=== PATIENT | female | born 1975 | race Hispanic/Latino ===

== ENCOUNTER 2018-10-30 12:21 | Emergency (ER) | payer SELFPAY | END 2018-10-30 13:51 | disposition home or self-care (01) | LOC: EDH 12:21 | DX: J10.1 Influenza due to other identified influenza virus with other respiratory manifestations (principal); R50.81 Fever presenting with conditions classified elsewhere; Z90.49 Acquired absence of other specified parts of digestive tract | CPT/HCPCS: 87804; 87880 ==

== ENCOUNTER 2019-09-20 16:34 | Emergency (ER) | payer SELFPAY ==
[2019-09-20 17:31] LABS: RAPID GROUP A STREP NEGATIVE (NEGATIVE)
== END 2019-09-20 19:19 | disposition home or self-care (01) ==
LOC: EDH 16:34
DX: J06.9 Acute upper respiratory infection, unspecified (principal); Z90.49 Acquired absence of other specified parts of digestive tract; Z98.890 Other specified postprocedural states
CPT/HCPCS: 87804; 87880

== ENCOUNTER 2020-02-26 11:13 | Emergency (ER) | payer OTHER, SELFPAY ==
[2020-02-26] MEDS ORDERED: ACETAMINOPHEN EXTRA STRENGTH 500 MG TABLET ONE (11:40)
[2020-02-26] MEDS ORDERED: ALBUTEROL INHALER 90MCG/INH IH ONE (11:41)
== END 2020-02-26 13:48 | disposition home or self-care (01) ==
LOC: EDH 11:13
DX: U07.1 COVID-19 (principal); R50.9 Fever, unspecified; R05 Cough; R09.81 Nasal congestion; Z90.49 Acquired absence of other specified parts of digestive tract; Z98.890 Other specified postprocedural states
CPT/HCPCS: 36415; 71045; 81025; 87804 ×2; 87880; 99284; U0003

== ENCOUNTER 2025-05-21 09:26 | Emergency (ER) | payer BC, OTHER ==
[~2025-05-21] VITALS: Ht 154.9 cm; Wt 63.5 kg
--- NOTE | 2025-05-21 09:49 | ERN ---
General Chief Complaint: Low Back Pain/Injury Stated Complaint: LOW BACK PAIN Time Seen by MD: 09:36 Source: patient History of Present Illness Initial Comments Patient is a 49-year-old female coming in complaining of right flank pain. Patient states that this has been ongoing for two days. Long with this she states that he has suprapubic tenderness and dysuria. Allergies: Coded Allergies: No Known Drug Allergies (Unverified Allergy, Unknown, 05/21/25) Past Medical History Past Medical History: No Pertinent History Past Surgical History: Appendectomy ROS Dictation CONSTITUTIONAL: No chills, no fever, no weakness, no diaphoresis, no malaise. HEAD/FACE: No signs of trauma. EENT: No eye pain, no blurred vision, no tearing, no double vision, no ear pain, no ear discharge, no nose pain, no nasal congestion, no throat pain, no throat swelling, no mouth pain. RESPIRATORY: No cough, no orthopnea, no SOB, no stridor, no wheezing. CARDIOVASCULAR: No chest pain, no edema, no palpitations, no syncope. GASTROINTESTINAL/ABDOMINAL: abdominal pain, no constipation, no diarrhea, no nausea, no vomiting. GENITOURINARY: No abnormal discharge, dysuria, no frequent urination, no hematuria. No complaints of pain in the genitals. MUSCULOSKELETAL: No back pain, no gout, no joint pain, no joint swelling, no muscle pain, no muscle stiffness, no neck pain. INTEGUMENTARY: No change in color, no change in hair/nails, no dryness, no lesion, no lumps, no rash. NEUROLOGICAL/PSYCH: No anxiety, not depressed, no emotional problem, no heada katelynn, no numbness, no pre-existing deficit, no history of seizures, no tremors, no weakness. HEMATOLOGIC/LYMPHATIC: Not anemic, no history of blood clots, no apparent bleeding, no bruising, glands not swollen. All Systems Negative, Except as Noted. Physical Exam Physical Exam Dictation VITAL SIGNS: Reviewed. GENERAL APPEARANCE: Alert, oriented x3, no acute distress, obese. HEAD AND FACE: Non-traumatic. EYES: PERRL, pink conjunctivas, eyelid no trauma, anterior chamber clear. EARS: Pinnas intact and no signs of trauma or erythema. Ear canals clear and no discharge. TMs no erythema. NOSE: No discharge, no bleeding. OROPHARYNX: Mouth normal, teeth no caries, tongue pink. Pharynx clear, no erythema. Tonsils no exudates, no abscesses noted. Mucous membrane moist. NECK: Supple, non-tender, no thyromegaly, no masses, no JVD, no bruits. BREAST: Deferred. CHEST: No tenderness, no crepitus, no paradoxical movement, no retractions. LUNGS: Clear, well-ventilated, symmetric, no rales, no wheezing, no rhonchi, no stridor, good breath sounds bilaterally. HEART: Regular rate, regular rhythm, no murmur, no gallops. VASCULAR: No peripheral edema. ABDOMEN: Soft, positive bowel sounds, nondistended, no guarding, right CVA angle tone, no rebound, no masses no hepatomegaly, no splenomegaly, no Vang's sign, no hernias. RECTAL: Deferred. GENITAL: Deferred. NEUROLOGICAL: Normal speech, gross motor function intact, gross sensory function intact. MUSCULOSKELETAL: Neck nontender, full range of motion, back nontender, full range of motion. EXTREMITIES: Nontender, full range of motion. SKIN: Color pink, dry, no turgor, no rash, no lacerations, no abrasions, no contusions. LYMPHATICS: Deferred. Results Laboratory and Microbiology Lab and Micro Result Laboratory Tests Test 05/21/25 09:37 05/21/25 09:50 05/21/25 10:58 05/21/25 11:31 Urine Color LIGHT-YELLOW (YELLOW) Urine Appearance CLOUDY (CLEAR) H Urine pH 5.5 (5.0-8.0) Urine Specific [place] 1.032 (1.001-1.031) Urine Protein 20 mg/dL (NEGATIVE) H Urine Glucose (UA) >=1000 mg/dL (NEGATIVE) H Urine Ketones 20 mg/dL (NEGATIVE) H Urine Occult Blood LARGE (NEGATIVE) H Urine Nitrate NEGATIVE (NEGATIVE) Urine Bilirubin NEGATIVE mg/dL (NEGATIVE) Urine Urobilinogen 0.2 mg/dL (0.2-1.0) Urine Leukocyte Esterase 500 Isabel/uL (NEGATIVE) H Urine RBC 51-100 /HPF (0-1) H Urine WBC TNTC /HPF (0-1) H Urine WBC Clumps (Auto) FEW /HPF (0-1) Urine Squamous Epithelial Cells RARE /HPF (0-2) Urine Bacteria None /HPF (None Seen) Urine HCG, Qualitative NEGATIVE (NEGATIVE) White Blood Count 12.8 K/uL (4.8-10.8) H Red Blood Count 4.68 MIL/uL (4.00-5.50) Hemoglobin 15.2 g/dL (12.0-16.0) Hematocrit 43.3 % (36-48) Mean Corpuscular Volume 92.5 fL (79-99) Mean Corpuscular Hemoglobin 32.5 pg (27.0-33.0) Mean Corpuscular Hemoglobin Concent 35.1 g/dL (32.0-36.0) Red Cell Distribution Width 12.2 % (11.0-15.5) Platelet Count 202 K/uL (130-400) Mean Platelet Volume 11.2 fL (7.5-10.5) H Immature Granulocyte % (Auto) 0.9 % (0-1) Neutrophils (%) (Auto) 74.1 % (40.0-77.0) Lymphocytes (%) (Auto) 16.8 % (21.0-51.0) L Monocytes (%) (Auto) 6.4 % (3.0-13.0) Eosinophils (%) (Auto) 1.3 % (0.0-8.0) Basophils (%) (Auto) 0.5 % (0.0-5.0) Neutrophils # (Auto) 9.5 K/uL (1.8-7.7) H Lymphocytes # (Auto) 2.2 K/uL (1.0-4.8) Monocytes # (Auto) 0.8 K/uL (0.1-1.0) Eosinophils # (Auto) 0.17 K/uL (0.00-0.70) Basophils # (Auto) 0.06 K/uL (0.00-0.20) Absolute Immature Granulocyte (auto 0.11 K/uL (0-1) Nucleated Red Blood Cells 0.0 % (0.0-0.19) Sodium Level 131 mmol/L (136-145) L Potassium Level 4.5 mmol/L (3.5-5.1) Chloride Level 96 mmol/L (101-111) L Carbon Dioxide Level 29 mmol/L (21-32) Blood Urea Nitrogen 12 mg/dL (7-18) Creatinine 0.7 mg/dL (0.5-1.0) Glomerular Filtration Rate Calc 107 mL/min (>90) Random Glucose 463 mg/dL (70-105) *H Total Calcium 9.6 mg/dL (8.5-10.1) Blood Gas Specimen Type Arterial Arterial Blood pH 7.459 (7.350-7.450) Arterial Blood Partial Pressure CO2 34 mmHg (32-45) Arterial Blood Partial Pressure O2 93.2 mmHg (83.0-108.0) Arterial Blood HCO3 23.3 mmol/L (21.0-28.0) Arterial Blood Oxygen Saturation 97.5 % (94.0-98.0) Arterial Blood Base Excess 0.2 mmol/L (-2.0-3.0) Hemoglobin (Blood Gas) 14.8 g/dL (12.0-16.0) Sodium (Blood Gas) 135 MMOL/L (136-145) L Bedside Potassium (Blood Gas) 3.7 MMOL/L (3.4-4.5) Bedside Chloride (Blood Gas) 99 MMOL/L (98-107) Bedside Glucose (Blood Gas) 426 MG/DL (65-95) *H Bedside Ionized Calcium (Blood Gas) 1.18 MMOL/L (1.15-1.33) Bedside Lactic Acid (Blood Gas) 1.79 MMOL/L (0.36-0.75) H Blood Gas Temperature 37.0 CELSIUS (35.5-37.0) Blood Gas Vent Mode 2LNC (ROOM AIR) FiO2 21.0 % Blood Gas Specimen Comment RR DR. COSTELLO Whole Blood Glucose 328 MG/DL (70-110) H Labs Reviewed?: Yes EKG/XRAY/US/CT/MRI Ultrasound Comment [address] [id number] IMAGING REPORT Signed PATIENT: BRAD CEBALLOS MR#: [id number] : 1975 SEX: F AGE: 49 LOCATION: [facility] ORDER 02 STATUS: REG ER REPORT#: [id number] SERVICE 120 REASON: hydrodosalpix ORDERING PHYSICIAN: PAVEL COSTELLO MD PROCEDURE: PELVCOMP - US PELVIC NON-OB COMP EXAM: US Pelvis, Complete transabdominal COMPARISON: None provided. CLINICAL HISTORY: hydrodosalpix TECHNIQUE: Transabdominal pelvic ultrasound (complete) with image documentation. FINDINGS: ENDOMETRIUM: Endometrial thickness measuring approximately 2 mm. UTERUS/CERVIX: The uterus appears within normal limit, measuring 8.7 x 3.3 x 2.5 cm in craniocaudal, AP, and transverse dimensions respectively. No uterine fibroid or other mass evident. RIGHT OVARY: A tubular /cystic area measuring approximately 6.7 x 2.3 x 3.7 cm in the right adnexa. LEFT OVARY: Simple cyst in the left ovary measuring approximately 3.2 x 1.7 x 1.8 cm. FREE FLUID: No free fluid. IMPRESSION: 1. Right adnexal tubular/cystic structure measuring 6.7 x 2.3 x 3.7 cm, consistent with hydrosalpinx. This may be further characterized with contrast-enhanced MR imaging on a nonemergent basis. 2. Left ovarian simple cyst measuring 3.2 x 1.7 x 1.8 cm. /[place] DICTATED BY: CAROLE MALDONADO Jr., MD DATE: 05/21/251423 ELECTRONICALLY SIGNED BY: CAROLE MALDONADO Jr., MD DATE: 05/21/251423 [place] [address] IMAGING REPORT Signed PATIENT: BRAD CEBALLOS MR#: [id number] : 1975 SEX: F AGE: 49 LOCATION: [facility] ORDER 1011 STATUS: REG REPORT#: [id number] SERVICE 1010 REASON: hematuria ORDERING PHYSICIAN: PAVEL COSTELLO MD PROCEDURE: ABD PEL WO - CT ABDOMEN/PELVIS W/O CONTRAST EXAM: CT Abdomen and Pelvis without IV contrast CLINICAL HISTORY: Severe flank pain for 2 days with hematuria. History of prior appendicectomy. TECHNIQUE: Thin collimated axial CT images of the abdomen and pelvis were obtained with sagittal and coronal reformatted images also submitted. CT scan is done according to ALARA (As Low As Reasonably Achievable). CONTRAST: None. COMPARISON: None. FINDINGS: Unremarkable visualized lung parenchyma. No focal abnormality within the gallbladder, pancreas, spleen, adrenals, or kidneys. No radiopaque renal calculus or hydronephrosis. Diffuse fatty infiltration of the liver. There is no obvious bowel wall thickening. Bowel loops are normal in caliber without evidence of obstruction or ileus. The appendix is surgically removed. There is no abnormality within the urinary bladder. A 7.2 by 2.8 cm tubular structure in the right adnexa, suggesting hydrosalpinx. Unremarkable uterus and visualized both ovaries. No lymphadenopathy. No free fluid. There is no acute osseous abnormality. IMPRESSIONS: No renal or ureteric calculus. Suspected right hydrosalpinx. This may be further characterized with pelvic ultrasound and/or contrast-enhanced MR imaging of the pelvis. /[place] DICTATED BY: CAROLE MALDONADO Jr., MD DATE: 05/21/251240 ELECTRONICALLY SIGNED BY: CAROLE MALDONADO Jr., MD DATE: 05/21/25 1241 [facility] MDM: Differential diagnosis: UTI, hydrosalpinx, diabetes mellitus hyperglycemia uncontrolled Rationale: Tests considered and ordered secondary to shared decision making include: Previous outside records reviewed: Old ER visits. Risk of complication and/or morbidity or mortality of patient management: None Medications-Per medication reconciliation Need for hospitalization: Patient does not meet criteria for hospitalization. Need for emergency major/minor surgery: No Patient is a 49-year-old female coming in complaining of flank pain. Laboratory workup positive for urinary tract infection along with this patient has not been compliant with a her medication for diabetes. Patient was hydrated with IV fluids IV insulin was given. Patient will be discharged in stable condition with a diagnosis of diabetes mellitus hyperglycemia uncontrolled along with this patient was also found to have a ovarian hydrosalpinx. ED Course Orders Procedure Category Date Status Time Cbc With Differential LAB 05/21/25 Complete 09:39 Basic Metabolic Panel LAB 05/21/25 Complete 09:39 Urinalysis LAB 05/21/25 Complete W/Microscopic 09:39 ,Urine Test LAB 05/21/25 Complete 09:39 Ct Abdomen/Pelvis W/O CT 05/21/25 Resulted Contrast 10:10 Culture Urine KIANA 05/21/25 In Process 10:28 0.9%Nacl 1000ml (Ns PHA 05/21/25 Complete 1000ml) 10:30 Insulin Regular, PHA 05/21/25 Complete Human 3ml (Humulin R 10:30 Ceftriaxone 1g Vial PHA 05/21/25 Complete (Rocephine 1g Inj) 11:00 Arterial Blood Gas + RT 05/21/25 Transmitted 10:31 Bedside Glucose CPOE 05/21/25 Transmitted Fingerstick 11:01 Us Pelvic Non-Ob Comp US 05/21/25 Resulted 12:01 Arterial Blood Gas LAB 05/21/25 Complete Arterial + 10:58 Current Medications Medications (Trade) Dose Ordered Sig/Rae Route PRN Reason Start Time Stop Time Status Last Admin Dose Admin Ceftriaxone Sodium (ROCEphine 1G INJ) 1 gm ONCE ONCE IVPB 05/21/25 11:00 05/21/25 11:01 DC 05/21/25 10:37 Insulin Human Regular (humuLIN R 100 UNIT/ML 3ML) 10 unit ONCE ONCE SQ 05/21/25 10:30 05/21/25 10:34 DC 05/21/25 10:38 Sodium Chloride 1,000 ml @ 0 mls/hr ONCE ONCE IV 05/21/25 10:30 05/21/25 10:34 DC 05/21/25 10:37 Vital Signs Date Time Temp Pulse Resp B/P (MAP) Pulse Ox O2 Delivery O2 Flow Rate FiO2 05/21/25 11:47 97.9 85 16 134/73 98 Room Air* 0 21 05/21/25 09:27 99.5 107 18 118/78 97 Room Air* 0 21 05/21/25 09:27 99.5 107 18 118/78 97 Room Air DX & DISP Disposition: Discharge Departure Impression: Primary Impression: UTI (urinary tract infection) Additional Impressions: Diabetes mellitus due to underlying condition, uncontrolled, with hyperglycemia, Hydrosalpinx Condition: Stable Scripts Cephalexin Monohydrate (Keflex) 500 Mg Cap 1 CAP PO BID for 10 Days, #20 CAP 0 Refills Prov: PAVEL COSTELLO MD 05/21/25 Additional Instructions: FOLLOW-UP WITH PRIMARY CARE PROVIDER IN 1 TO 2 DAYS. TAKE MEDICATIONS DIRECTED HERE IN THE EMERGENCY ROOM. OKAY TO CONTINUE HOME MEDICATIONS UNLESS OTHERWISE DISCUSSED DURING YOUR VISIT IN THE EMERGENCY ROOM TODAY. RETURN TO YOUR NEAREST EMERGENCY ROOM IF SYMPTOMS WORSEN OR IF THERE IS NO IMPROVEMENT. CALL 911 IF YOU NEED IMMEDIATE ASSISTANCE. TAKE TYLENOL [id number] NEEDED AND IF NO CONTRAINDICATIONS ARE PRESENT. INCREASE ORAL HYDRATION. A WOUND CULTURE OR URINE CULTURE WAS ORDERED HERE IN THE EMERGENCY ROOM DEPARTMENT PLEASE FOLLOW-UP WITH PRIMARY CARE PROVIDER AND ADVISE THEM TO GET REPORTS FROM OUR FACILITY. IF YOU HAD ANY CARLOS WRAP/SPLINTS THAT WERE APPLIED HERE, PLEASE DO NOT REMOVE THEM UNTIL YOU SEE YOUR PRIMARY CARE OR SPECIALTY. Referrals: Referrals: SELF,REFERRAL (PCP) BELTRAN FERNANDEZ MD Time of Disposition: 13:42 PAVEL COSTELLO MD May 21, 2025 09:49
[2025-05-21 09:56] LABS: IMMATURE GRANULOCYTE ABSOLUTE 0.11 K/uL (0-1); NUCLEATED RED BLOOD CELLS 0.0 % (0.0-0.19); PLATELET COUNT (AUTO) 202 K/uL (130-400); RED BLOOD CELL COUNT(AUTO) 4.68 MIL/uL (4.00-5.50); RED CELL DISTRIBUTION WIDTH 12.2 % (11.0-15.5); WHITE BLOOD COUNT (AUTO) 12.8 K/uL (4.8-10.8)
[2025-05-21 10:04] LABS: APPEARANCE,URINE CLOUDY (CLEAR); GLUCOSE, URINE (UA) >=1000 mg/dL (NEGATIVE); LEUKOCYTE ESTERASE ,URINE 500 Leu/uL (NEGATIVE); NITRATE,URINE NEGATIVE (NEGATIVE); OCCULT BLOOD,URINE LARGE (NEGATIVE); SQUAMOUS EPITHELIAL CELL,UR RARE /HPF (0-2); WBC CLUMP FEW /HPF (0-1)
[2025-05-21 10:08] LABS: HCG,QUALITATIVE URINE NEGATIVE (NEGATIVE)
[2025-05-21 10:11] LABS: CREATININE 0.7 mg/dL (0.5-1.0); GLOMERULAR FILTR. RATE CALC 107.0 mL/min (>90); SODIUM SERUM 131.0 mmol/L (136-145); UREA NITROGEN, BLOOD 12.0 mg/dL (7-18)
[2025-05-21 10:15] LABS: GLUCOSE,RANDOM 463.0 mg/dL (70-105)
[2025-05-21] MEDS: 0.9%NACL 1000ML 1,000 ML IV ONE ×2 (10:37→13:58)
--- NOTE | 2025-05-21 11:43 | HMCIMG ---
EXAM: CT Abdomen and Pelvis without IV contrast CLINICAL HISTORY: Severe flank pain for 2 days with hematuria. History of prior appendicectomy. TECHNIQUE: Thin collimated axial CT images of the abdomen and pelvis were obtained with sagittal and coronal reformatted images also submitted. CT scan is done according to ALARA (As Low As Reasonably Achievable). CONTRAST: None. COMPARISON: None. FINDINGS: Unremarkable visualized lung parenchyma. No focal abnormality within the gallbladder, pancreas, spleen, adrenals, or kidneys. No radiopaque renal calculus or hydronephrosis. Diffuse fatty infiltration of the liver. There is no obvious bowel wall thickening. Bowel loops are normal in caliber without evidence of obstruction or ileus. The appendix is surgically removed. There is no abnormality within the urinary bladder. A 7.2 by 2.8 cm tubular structure in the right adnexa, suggesting hydrosalpinx. Unremarkable uterus and visualized both ovaries. No lymphadenopathy. No free fluid. There is no acute osseous abnormality. IMPRESSIONS: No renal or ureteric calculus. Suspected right hydrosalpinx. This may be further characterized with pelvic ultrasound and/or contrast-enhanced MR imaging of the pelvis. /[place]
[2025-05-21 13:25] LABS: ABG BASE EXCESS 0.2 mmol/L (-2.0-3.0); ABG HCO3 23.3 mmol/L (21.0-28.0); ABG OXYGEN SATURATION 97.5 % (94.0-98.0); ABG PCO2 34 mmHg (32-45); ABG PH 7.459 (7.350-7.450); CARBON MONOXIDE 0.8 % (0.5-1.5); PO2, ARTERIAL BG 93.2 mmHg (83.0-108.0); TEMPERATURE, CELSIUS BG 37.0 CELSIUS (35.5-37.0); VENT MODE, BG 2LNC (ROOM AIR)
--- NOTE | 2025-05-21 13:25 | HMCIMG ---
EXAM: US Pelvis, Complete transabdominal COMPARISON: None provided. CLINICAL HISTORY: hydrodosalpix TECHNIQUE: Transabdominal pelvic ultrasound (complete) with image documentation. FINDINGS: ENDOMETRIUM: Endometrial thickness measuring approximately 2 mm. UTERUS/CERVIX: The uterus appears within normal limit, measuring 8.7 x 3.3 x 2.5 cm in craniocaudal, AP, and transverse dimensions respectively. No uterine fibroid or other mass evident. RIGHT OVARY: A tubular /cystic area measuring approximately 6.7 x 2.3 x 3.7 cm in the right adnexa. LEFT OVARY: Simple cyst in the left ovary measuring approximately 3.2 x 1.7 x 1.8 cm. FREE FLUID: No free fluid. IMPRESSION: 1. Right adnexal tubular/cystic structure measuring 6.7 x 2.3 x 3.7 cm, consistent with hydrosalpinx. This may be further characterized with contrast-enhanced MR imaging on a nonemergent basis. 2. Left ovarian simple cyst measuring 3.2 x 1.7 x 1.8 cm. /[place]
[2025-05-21] MEDS ORDERED: CEPH500B PO (13:43)
[2025-05-21 14:45] VITALS: BP 135/76; PULSE 67; RESP 16; TEMP 97.4; O2SAT 99
== END 2025-05-21 14:51 | disposition home or self-care (01) ==
LOC: EDH 09:26
DX: N39.0 Urinary tract infection, site not specified (principal); N70.11 Chronic salpingitis; E11.65 Type 2 diabetes mellitus with hyperglycemia; Z90.49 Acquired absence of other specified parts of digestive tract
CPT/HCPCS: 99285; 74176; 96365; 76856; 96361; 82947; 80048; 82803; 85025; 87086 ×2; 87186; 83605; 81001; 81025; 36415; 36600; 84132; 84295; 96372; 82435; 85018; 82948; J1815; J7030; J0696